=== PATIENT | female | born 1970 | race Caucasian/White ===

== ENCOUNTER 2016-08-21 13:58 | Emergency (ER) | payer BC ==
[~2016-08-21] VITALS: Ht 149.9 cm; Wt 80.9 kg
[~2016-08-21 13:58] MED LIST: ARMO180T PO; CLON.3T T-DERMAL
[2016-08-21 14:04] VITALS: BP 140/95; PULSE 79; RESP 16; TEMP 98.6; O2SAT 97
[2016-08-21] MEDS ORDERED: SUPPLEMENTS PO (14:21)
--- NOTE | 2016-08-21 14:25 | PD ---
HPI Chief Complaint: Abdominal Pain Time Seen by Provider: 14:09 Travel History International Travel<30 days: No Contact w/Intl Traveler<30days: No Traveled to known affect area: No History of Present Illness HPI 46-year-old female complains of right low quadrant abdominal pain, right flank pain and nausea. Patient states the symptoms started last night. Patient states the pain is cramping pain and sharp pain started on the right low quadrant abdomen with rates in the right flank and right back area. Patient states that she has nausea but no vomiting or diarrhea. Patient denies dysuria or frequency. Patient denies any vaginal discharge or bleeding. Patient denies any fever chills. Patient has history of ovarian cyst and kidney stone in the past. Patient has been seen by specialist wound care for her ovarian cyst. Patient awaiting surgery for ovarian cyst. Patient denies any injury. On a scale from 1-10 the pain is a 10. PFSH Past Medical History Hx Anticoagulant Therapy: No Arthritis: Yes (RHEUMATOID) Asthma: Yes Autoimmune Disease: Yes (MULTIPLE SCLEROSIS) Anxiety: Yes Heart Rhythm Problems: No Cancer: No Cardiovascular Problems: Yes (HTN) High Cholesterol: Yes Congestive Heart Failure: No Cerebrovascular Accident: Yes (TIA, HTN, CHOL) Diabetes: No Diminished Hearing: No Fibromyalgia: Yes Gastrointestinal Disorders: Yes (n/v) Glaucoma: No Hepatitis: No Hiatal Hernia: No Herniated Disk: Yes Hypertension: Yes Immune Disorder: Yes Parkinson's Disease: Yes Psychiatric: Yes (ptsd) Respiratory: Yes (ASTHMA) Immunizations Current: Yes Pneumonia: Yes Thyroid Disease: Yes ?: Not Menopausal: No : 6 Para: 2 Miscarriage: 4 Ovarian Cysts: Yes (HX OF RT OVARY SIDED DERMOID TUMOR ) Past Surgical History Abdominal Surgery: Yes (DERMOID TUMOR REMOVED TO LEFT OVARY AND UTERUS) Section: Yes (03/27 X1) Gynecologic Surgery: Yes (MULTIPLE TUMORS REMOVED, LATEST RIGHT OVARY,BREAST, CERCLAGE) Oral Surgery: Yes (ORAL, NASAL POST TRAUMA) Pacemaker: No Other Surgery: Yes (LAP & HYSTOCOPY;BILATERAL LEFT LUMPECTOMY X 2 07/29) Social History Alcohol Use: No Tobacco Use: No Substance Use: No Allergies-Medications (Allergen,Severity, Reaction): Coded Allergies: Compazine (Verified Adverse Reaction, Mild, anxiety, 08/21/16) *MDRO Multi-Drug Resistant Organism (Unverified Adverse Reaction, Unknown , 08/21/16) MRSA Reported Meds & Prescriptions Reported Meds & Active Scripts Active Reported [Supplements] 1 Tab PO DAILY Review of Systems General / Constitutional: No: Fever Eyes: No: Visual changes HENT: No: Headaches Cardiovascular: No: Chest Pain or Discomfort Respiratory: No: Shortness of Breath Gastrointestinal: Positive: Abdominal Pain Genitourinary: No: Dysuria Musculoskeletal: No: Pain Skin: No Rash Neurologic: No: Weakness Psychiatric: No: Depression Endocrine: No: Polydipsia Hematologic/Lymphatic: No: Easy Bruising Physical Exam Narrative GENERAL: Well-nourished, well-developed patient. SKIN: Warm and dry. HEAD: Normocephalic. EYES: No scleral icterus. No injection or drainage. NECK: Supple, trachea midline. No JVD or lymphadenopathy. CARDIOVASCULAR: Regular rate and rhythm without murmurs, gallops, or rubs. RESPIRATORY: Breath sounds equal bilaterally. No accessory muscle use. GASTROINTESTINAL: Abdomen soft, nondistended. Patient has moderate tenderness on palpation right low quadrant abdomen and right low back area. MUSCULOSKELETAL: No cyanosis, or edema. BACK: Nontender without obvious deformity. No CVA tenderness. Data Data Last Documented VS Vital Signs Date Time Temp Pulse Resp B/P Pulse Ox O2 Delivery O2 Flow Rate FiO2 08/21/16 15:39 18 08/21/16 14:04 98.6 79 140/95 97 Orders Complete Blood Count With Diff (08/21/16 14:25) Comprehensive Metabolic Panel (08/21/16 14:25) Prothrombin Time / Inr (Pt) (08/21/16 14:25) Act Partial Throm Time (Ptt) (08/21/16 14:25) Lipase (08/21/16 14:25) Urinalysis - C+S If Indicated (08/21/16 14:25) Ct Abd/Pel W Iv Contrast(Rout) (08/21/16 14:25) Ed Urine Pregnancytest Poc (08/21/16 14:25) Sodium Chlor 0.9% 1000 Ml Inj (Ns 1000 M (08/21/16 14:30) Morphine Inj (Morphine Inj) (08/21/16 14:30) Ondansetron Inj (Zofran Inj) (08/21/16 14:30) Urine Culture (08/21/16 14:35) Iohexol 300 Inj (Rad Ct) (Omnipaque 300 (08/21/16 15:29) Ketorolac Inj (Toradol Inj) (08/21/16 15:45) Labs Laboratory Tests Test 08/21/16 08/21/16 14:35 14:45 Urine Color YELLOW Urine Turbidity HAZY Urine pH 6.5 Urine Specific [place] 1.031 Urine Protein NEG mg/dL Urine Glucose (UA) 500 mg/dL Urine Ketones TRACE mg/dL Urine Occult Blood LARGE Urine Nitrite NEG Urine Bilirubin NEG Urine Leukocyte Esterase NEG Urine RBC 100-200 /hpf Urine WBC 9-14 /hpf Urine Squamous Epithelial 0-5 /hpf Cells Urine Bacteria OCC /hpf Microscopic Urinalysis Comment CULTURE INDICATED White Blood Count 7.3 TH/MM3 Red Blood Count 4.69 MIL/MM3 Hemoglobin 13.9 GM/DL Hematocrit 40.5 % Mean Corpuscular Volume 86.4 FL Mean Corpuscular Hemoglobin 29.7 PG Mean Corpuscular Hemoglobin 34.4 % Concent Red Cell Distribution Width 12.0 % Platelet Count 233 TH/MM3 Mean Platelet Volume 8.6 FL Neutrophils (%) (Auto) 62.2 % Lymphocytes (%) (Auto) 27.6 % Monocytes (%) (Auto) 8.6 % Eosinophils (%) (Auto) 1.2 % Basophils (%) (Auto) 0.4 % Neutrophils # (Auto) 4.6 TH/MM3 Lymphocytes # (Auto) 2.0 TH/MM3 Monocytes # (Auto) 0.6 TH/MM3 Eosinophils # (Auto) 0.1 TH/MM3 Basophils # (Auto) 0.0 TH/MM3 CBC Comment DIFF FINAL Differential Comment Prothrombin Time 10.7 SEC Prothromb Time International 1.0 RATIO Ratio Activated Partial 28.1 SEC Thromboplast Time Sodium Level 141 MEQ/L Potassium Level 3.8 MEQ/L Chloride Level 105 MEQ/L Carbon Dioxide Level 27.6 MEQ/L Anion Gap 8 MEQ/L Blood Urea Nitrogen 14 MG/DL Creatinine 0.93 MG/DL Estimat Glomerular Filtration 65 ML/MIN Rate Random Glucose 186 MG/DL Calcium Level 8.8 MG/DL Total Bilirubin 0.2 MG/DL Aspartate Amino Transf 13 U/L (AST/SGOT) Alanine Aminotransferase 31 U/L (ALT/SGPT) Alkaline Phosphatase 95 U/L Total Protein 7.2 GM/DL Albumin 3.4 GM/DL Lipase 169 U/L MDM Medical Decision Making Medical Screen Exam Complete: Yes Emergency Medical Condition: Yes Interpretation(s) Last Impressions Abdomen/Pelvis CT 08/21/16 1425 Signed Impressions: Service Date/Time: Sunday, August 21, 2016 15:25 - CONCLUSION: 1. Negative CT scan of the abdomen and pelvis. Patrice Aparicio MD 1601 p.m. CBC within normal limit. CMP within normal limit. UA positive with WBC RBC and bacteria. Differential Diagnosis Differential diagnosis including appendicitis, UTI, pyelonephritis, nephrolithiasis, ovarian cyst, ovarian torsion, ectopic . Narrative Course 46-year-old female with right low quadrant abdominal pain and right low back pain. History of ovarian cysts and kidney stone. Morphine 2 mg IV. Zofran 4 mg IV. Toradol 30 mg IV. Normal saline solution 1 25 cc an hour. Diagnosis Primary Impression: UTI (urinary tract infection) Qualified Code: N30.01 - Acute cystitis with hematuria Patient Instructions: General Instructions Additional Instructions: Take medications as directed. Follow-up with personal physician. Return if worse. Med/Other Pt SpecificInfo: Prescription(s) given Scripts Hydrocodone-Acetaminophen ([place])5-325 mg Tab1 Tab PO Q6H PRN (PAIN) #10 TAB Ref 0 Prov:Brayan Jolley MD 08/21/16 Phenazopyridine (Pyridium)200 Mg Drm259 Mg PO Q8H PRN (DYSURIA) #12 TAB Ref 0 Prov:Brayan Jolley MD 08/21/16 Sulfamethoxazole-Trimethoprim (Bactrim DS)800-160 Mg Tab1 Tab PO BID #14 TAB Prov:Brayan Jolley MD 08/21/16 Disposition: 01 DISCHARGE HOME Condition: Stable Brayan Jolley MD Aug 21, 2016 14:25
[2016-08-21] MEDS ORDERED: SODIUM CHLOR 0.9% 1000 ML INJ 1,000 ML IV SCH (14:30)
[2016-08-21] MEDS ORDERED: MORPHINE SULFATE 4 MG/ML INJ IV PUSH ONE (14:30)
[2016-08-21] MEDS ORDERED: ONDANSETRON HCL 4 MG/2 ML VIAL IV PUSH ONE (14:30)
[2016-08-21 14:57] LABS: AUTOMATED NEUTROPHIL # 4.6 TH/MM3 (1.8-7.7); BASOPHIL % 0.4 % (0.0-2.0); EOSINOPHIL # 0.1 TH/MM3 (0-0.4); EOSINOPHIL % 1.2 % (0.0-4.0); HEMATOCRIT 40.5 % (35.0-46.0); HEMO FLAGS DIFF FINAL; LYMPH % 27.6 % (9.0-44.0); MEAN CELL VOLUME 86.4 FL (80.0-100.0); MEAN CORPUSCULAR HEMOGLOBIN 29.7 PG (27.0-34.0); MEAN CORPUSCULAR HGB CONC 34.4 % (32.0-36.0); MONO % 8.6 % (0.0-8.0); NEUT % 62.2 % (16.0-70.0); PLATELET COUNT 233 TH/MM3 (150-450); RED BLOOD COUNT 4.69 MIL/MM3 (4.00-5.30); WHITE BLOOD COUNT 7.3 TH/MM3 (4.0-11.0)
[2016-08-21 15:03] LABS: CHLORIDE 105 MEQ/L (98-107); POTASSIUM 3.8 MEQ/L (3.5-5.1); SODIUM (NA) 141 MEQ/L (136-145)
[2016-08-21 15:06] LABS: BLOOD, URINE LARGE (NEG); GLUCOSE,URINE 500 mg/dL (NEG); KETONE, URINE TRACE mg/dL (NEG); NITRITE,URINE NEG (NEG); PH, URINE 6.5 (5.0-8.5)
[2016-08-21 15:07] LABS: ANION GAP 8 MEQ/L (5-15); APTT (PATIENT) 28.1 SEC (24.3-30.1); BICARBONATE 27.6 MEQ/L (21.0-32.0); BLOOD UREA NITROGEN 14 MG/DL (7-18); PROTHROMBIN TIME - PATIENT 10.7 SEC (9.8-11.6)
[2016-08-21 15:10] LABS: ALT (GPT) 31 U/L (10-53); AST (GOT) 13 U/L (15-37); GLOMERULAR FILTRATION RATE 65 ML/MIN (>89)
[2016-08-21 15:11] LABS: TOTAL BILIRUBIN ADULT 0.2 MG/DL (0.2-1.0)
[2016-08-21 15:13] LABS: ALKALINE PHOSPHATASE 95 U/L (45-117)
[2016-08-21 15:19] LABS: URINE COLOR YELLOW (YELLW/STRAW)
[2016-08-21 15:21] LABS: BACTERIA, URINE OCC /hpf; COMMENT (UR) CULTURE INDICATED; CULTURE IF INDICATED CULTURE INDICATED; RBC, URINE 100-200 /hpf (0-3); SQUAMOUS EPITHELIAL CELL URINE 0-5 /hpf (0-5)
[2016-08-21] MEDS ORDERED: IOHEXOL 300 MG/ML 100 ML BTL (for Rad CT) IV ONE (15:29)
[2016-08-21 15:39] VITALS: RESP 18
[2016-08-21] MEDS ORDERED: KETOROLAC TROMETHAMINE 30 MG/ML (IVP) VIAL IV PUSH ONE (15:45)
--- NOTE | 2016-08-21 15:47 | RADHPO ---
EXAM DATE/TIME: 08/21/2016 15:25 [facility] COMPARISON: CT BRAIN W/O CONTRAST, October 18, 2015, 11:28. INDICATIONS : Right lower quadrant abdomen pain for two days IV CONTRAST: 100 cc Omnipaque 300 (iohexol) IV ORAL CONTRAST: No oral contrast ingested. RADIATION DOSE: 19.39 CTDIvol (mGy) MEDICAL HISTORY : Hypertension. Multiple sclerosis. SURGICAL HISTORY : section. ENCOUNTER: Initial ACUITY: 2 days PAIN SCALE: 8/10 LOCATION: Right lower quadrant abdomen TECHNIQUE: Volumetric scanning of the abdomen and pelvis was performed. Using automated exposure control and ad justment of the mA and/or kV according to patient size, radiation dose was kept as low as reasonably achievable to obtain optimal diagnostic quality images. FINDINGS: LOWER LUNGS: The visualized lower lungs are clear. LIVER: Homogeneous density without lesion. There is no dilation of the biliary tree. No calcified gallston es. SPLEEN: Normal size without lesion. PANCREAS: Within normal limits. KIDNEYS: Normal in size and shape. There is no mass, stone or hydronephrosis. ADRENAL GLANDS: Within normal limits. VASCULAR: There is no aortic aneurysm. BOWEL/MESENTERY: The stomach, small bowel, and colon demonstrate no acute abnormality. There is no free intraperitone al air or fluid. The appendix is visualized and is normal in appearance. ABDOMINAL WALL: Within normal limits. RETROPERITONEUM: There is no lymphadenopathy. BLADDER: No wall thickening or mass. REPRODUCTIVE: Within normal limits. INGUINAL: There is no lymphadenopathy or hernia. MUSCULOSKELETAL: Within normal limits for patient age. CONCLUSION: 1. Negative CT scan of the abdomen and pelvis. Patrice Aparicio MD on August 21, 2016 at 15:42 Board Certified Radiologist. This report was verified electronically.
[2016-08-21] MEDS ORDERED: PYRI200T4 PO (16:09)
[2016-08-21] MEDS ORDERED: NORC5TAB PO (16:09)
[2016-08-21] MEDS ORDERED: BACT800T5 PO (16:09)
[2016-08-21] MEDS ORDERED: LEVOFLOXACIN 750 MG TAB PO ONE (16:15)
[2016-08-21 16:46] VITALS: BP 121/81
[2016-09-01] MEDS ORDERED: KETO10 PO (15:28)
== END 2016-08-21 16:49 | disposition home or self-care (01) ==
LOC: PHED 13:58
DX: N39.0 Urinary tract infection, site not specified (principal); R82.90 Unspecified abnormal findings in urine; I10 Essential (primary) hypertension; G20 Parkinson's disease; Z86.73 Personal history of transient ischemic attack (TIA), and cerebral infarction without residual deficits; E78.00 Pure hypercholesterolemia, unspecified; G35 Multiple sclerosis
CPT/HCPCS: 74177; 80053; 81001; 83690; 84703; 85025; 85610; 85730; 87086; 96361; 96374; 96375; 99284; J1885; J2270; J2405; J7030; Q9967

== ENCOUNTER 2016-08-22 11:43 | Emergency (ER) | payer BC ==
[~2016-08-22] VITALS: Ht 149.9 cm; Wt 77.2 kg
[~2016-08-22 11:43] MED LIST changes: +BACT800T5 PO; +NORC5TAB PO; +PYRI200T4 PO; +SUPPLEMENTS PO
[2016-08-22 11:46] VITALS: BP 146/91; PULSE 72; RESP 15; TEMP 97.7; O2SAT 98
[2016-09-01] MEDS ORDERED: KETO10 PO (15:28)
== END 2016-08-22 13:20 | disposition left against medical advice (07) ==
LOC: NED 11:43
DX: E86.0 Dehydration (principal); Z53.21 Procedure and treatment not carried out due to patient leaving prior to being seen by health care provider
CPT/HCPCS: 99281

== ENCOUNTER 2016-08-29 17:20 | Emergency (ER) | payer BC ==
[~2016-08-29] VITALS: Ht 149.9 cm; Wt 81.0 kg
[~2016-08-29 17:20] MED LIST changes: -ARMO180T PO; -CLON.3T T-DERMAL
[2016-08-29 17:29] VITALS: BP 151/96; PULSE 86; RESP 16; TEMP 98.7; O2SAT 98
[2016-08-29] MEDS ORDERED: ARMO120T PO (17:49)
[2016-08-29] MEDS ORDERED: CYCL1TAB29 PO (17:49)
[2016-08-29] MEDS ORDERED: CLON.3T T-DERMAL (17:49)
[2016-08-29] MEDS ORDERED: TORADOL PO (17:59)
[2016-08-29 18:14] LABS: BLOOD, URINE NEG (NEG); GLUCOSE,URINE 250 mg/dL (NEG); KETONE, URINE NEG (NEG); NITRITE,URINE NEG (NEG)
[2016-08-29 18:22] LABS: METHOD OF COLLECTION CLEAN CATCH; URINE COLOR YELLOW (YELLW/STRAW); WBC, URINE 0-2 /hpf (0-5)
[2016-08-29 18:23] LABS: BACTERIA, URINE MOD /hpf; COMMENT (UR) CULTURE INDICATED; CULTURE IF INDICATED CULTURE INDICATED; SQUAMOUS EPITHELIAL CELL URINE > 8 /hpf (0-5)
[2016-08-29] MEDS ORDERED: KETO10 PO (19:24)
--- NOTE | 2016-08-29 19:25 | PD ---
HPI Chief Complaint: Abdominal Pain Time Seen by Provider: 17:50 Travel History International Travel<30 days: No Contact w/Intl Traveler<30days: No Traveled to known affect area: No History of Present Illness HPI This 46-year-old female is complaining of right flank pain radiates to the right side of the abdomen. She's been having this pain for some time. She is seeing Dr. Poon who is planning surgery to remove dermoid tumors. She was here the other day for this pain and had a CT scan which was essentially negative. She was noted to have 100-200 red cells and some white cells in her urine she was put on antibiotics. She Had some vomiting with the Bactrim and was not able to complete the prescription. She has multiple medical issues. She has lupus. 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 She has multiple autoimmune illnesses. She has been taking Toradol for pain and has run out. She does go to pain management she has a lot of trouble with her neck and her back. She is allergic to Dilaudid. Morphine does not help her. Lortab does not help her. PFSH Past Medical History Hx Anticoagulant Therapy: No Arthritis: Yes (RHEUMATOID) Asthma: Yes Autoimmune Disease: Yes (MULTIPLE SCLEROSIS) Anxiety: Yes Heart Rhythm Problems: No Cancer: No Cardiovascular Problems: Yes (HTN) High Cholesterol: Yes Congestive Heart Failure: No Cerebrovascular Accident: Yes (TIA) Diabetes: No Diminished Hearing: No Fibromyalgia: Yes Gastrointestinal Disorders: Yes (n/v) Glaucoma: No Hepatitis: No Hiatal Hernia: No Herniated Disk: Yes Hypertension: Yes Immune Disorder: Yes Parkinson's Disease: Yes Psychiatric: Yes (ptsd) Respiratory: Yes (ASTHMA) Immunizations Current: Yes Pneumonia: Yes Thyroid Disease: Yes Tetanus Vaccination: < 5 Years Influenza Vaccination: No ?: Not LMP: END OF JUL Menopausal: No : 6 Para: 2 Miscarriage: 4 Ovarian Cysts: Yes (HX OF RT OVARY SIDED DERMOID TUMOR ) Past Surgical History Abdominal Surgery: Yes (DERMOID TUMOR REMOVED TO LEFT OVARY AND UTERUS) Section: Yes (03/27 X1) Gynecologic Surgery: Yes (MULTIPLE TUMORS REMOVED, LATEST RIGHT OVARY,BREAST, CERCLAGE) Oral Surgery: Yes (ORAL, NASAL POST TRAUMA) Pacemaker: No Other Surgery: Yes (LAP & HYSTOCOPY;BILATERAL LEFT LUMPECTOMY X 2 07/29) Social History Alcohol Use: No Tobacco Use: No Substance Use: No Allergies-Medications (Allergen,Severity, Reaction): Coded Allergies: Compazine (Verified Adverse Reaction, Mild, anxiety, 08/29/16) *MDRO Multi-Drug Resistant Organism (Unverified Adverse Reaction, Unknown , 08/29/16) MRSA Ativan (Verified Adverse Reaction, Unknown, "I felt blank", 08/29/16) Dilaudid (Verified Adverse Reaction, Unknown, "I just didn't feel right", 08/29/16) Reported Meds & Prescriptions Reported Meds & Active Scripts Active [place] (Hydrocodone-Acetaminophen) 5-325 mg Tab 1 Tab PO Q6H PRN Bactrim DS (Sulfamethoxazole-Trimethoprim) 800-160 Mg Tab 1 Tab PO BID Reported [Toradol] 30 Mg PO DIRECTED [id number] HR Patch (Clonidine) 0.3 Mg/24 Hr Patch 1 Patch T-DERMAL Q7D Flexeril (Cyclobenzaprine HCl) 10 Mg Tab 10 Mg PO TID [place] Thyroid (Thyroid) 120 Mg Tab 120 Mg PO DAILY Review of Systems General / Constitutional: No: Fever, Chills Eyes: No: Diploplia, Blurred Vision Cardiovascular: No: Chest Pain or Discomfort Respiratory: No: Cough Gastrointestinal: Positive: Nausea, Abdominal Pain Genitourinary: No: Urgency, Frequency Musculoskeletal: No: Myalgias, Arthralgias Neurologic: No: Weakness Psychiatric: No: Anxiety Hematologic/Lymphatic: No: Easy Bruising Physical Exam Narrative GENERAL: Well-developed female SKIN: Warm and dry. HEAD: Atraumatic. Normocephalic. EYES: Pupils equal and round. No scleral icterus. No injection or drainage. ENT: No nasal bleeding or discharge. Mucous membranes pink and moist. NECK: Trachea midline. No JVD. CARDIOVASCULAR: Regular rate and rhythm. No murmur appreciated. RESPIRATORY: No accessory muscle use. Clear to auscultation. Breath sounds equal bilaterally. GASTROINTESTINAL: Abdomen soft, there is some right mid abdominal and right flank tenderness. There is no guarding or rigidity MUSCULOSKELETAL: No obvious deformities. No clubbing. No cyanosis. No edema. NEUROLOGICAL: Awake and alert. No obvious cranial nerve deficits. Motor grossly within normal limits. Normal speech. PSYCHIATRIC: Appropriate mood and affect; insight and judgment normal. Data Data Last Documented VS Vital Signs Date Time Temp Pulse Resp B/P Pulse Ox O2 Delivery O2 Flow Rate FiO2 08/29/16 17:29 98.7 86 16 151/96 98 Orders Urinalysis - C+S If Indicated (08/29/16 18:09) Urine Culture (08/29/16 18:10) Labs Laboratory Tests Test 08/29/16 18:10 Urine Collection Type CLEAN CATCH Urine Color YELLOW Urine Turbidity CLEAR Urine pH 6.0 Urine Specific [place] 1.030 Urine Protein NEG mg/dL Urine Glucose (UA) 250 mg/dL Urine Ketones NEG mg/dL Urine Occult Blood NEG Urine Nitrite NEG Urine Bilirubin NEG Urine Leukocyte Esterase NEG Urine WBC 0-2 /hpf Urine Squamous Epithelial > 8 /hpf Cells Urine Bacteria MOD /hpf Microscopic Urinalysis Comment CULTURE INDICATED Urine Collection Time 18:10 [facility] Medical Decision Making Medical Screen Exam Complete: Yes Emergency Medical Condition: Yes Medical Record Reviewed: Yes Differential Diagnosis Differential includes chronic abdominal pain, dermoid tumor, back pain Narrative Course Patient has had complete evaluation here and is just requesting some medication until she sees a pain management doctor in a few days. I will prescribe some Toradol which he says is the only thing that has helped her Diagnosis Primary Impression: Right flank pain Scripts Ketorolac 10 Mg Tab10 Mg PO Q6HR PRN (PAIN) #30 TAB Ref 0 Prov:Toni Gilliam MD 08/29/16 Disposition: 01 DISCHARGE HOME Condition: Stable Toni Gilliam MD Aug 29, 2016 19:25
[2016-08-29 19:31] VITALS: BP 147/84
[2016-09-01] MEDS ORDERED: KETO10 PO (15:28)
== END 2016-08-29 19:32 | disposition home or self-care (01) ==
LOC: PHED 17:20
DX: R10.9 Unspecified abdominal pain (principal); G35 Multiple sclerosis; I10 Essential (primary) hypertension; E78.00 Pure hypercholesterolemia, unspecified; Z86.73 Personal history of transient ischemic attack (TIA), and cerebral infarction without residual deficits; G20 Parkinson's disease; M79.7 Fibromyalgia
CPT/HCPCS: 81001; 87086; 99284

== ENCOUNTER 2017-06-22 16:36 | Emergency (ER) | payer SELFPAY ==
[~2017-06-22] VITALS: Ht 151.1 cm; Wt 78.0 kg
[~2017-06-22 16:36] MED LIST changes: +ARMO120T PO; +CLON.3T T-DERMAL; +CYCL10TA PO; +KETO10 PO; -PYRI200T4 PO; -SUPPLEMENTS PO
[2017-06-22 16:38] VITALS: BP 179/98; PULSE 120; RESP 20; TEMP 98.9; O2SAT 98
--- NOTE | 2017-06-22 16:55 | PD ---
HPI Chief Complaint: Cold / Flu Symptoms Time Seen by Provider: 16:53 Travel History International Travel<30 days: No Contact w/Intl Traveler<30days: No Traveled to known affect area: No History of Present Illness HPI 47-year-old female came to the emergency room with history of chills, generalized myalgia, nausea, vomiting and just not feeling well for past 3 days. Patient says she has been taking Tylenol alternating with Advil for her chills/fever. She did not measure temperature at home. Her last dose of Advil was this morning. Patient was tachycardic in triage but afebrile. She says her entire body hurts and there is burning sensation at the tip of her fingers. Patient has history of Will's thyroiditis but she does not have insurance and has not taking medications in a while. She used to see an mold burner for it in the past. No known sick contacts. No history of diarrhea, dysuria or cough. Patient is also complaining of headache. [facility] Past Medical History Narrative Medical list of her past medical, surgical, social and family history is reviewed from the nursing note. Hx Anticoagulant Therapy: No Arthritis: Yes (RHEUMATOID) Asthma: Yes Autoimmune Disease: Yes (MULTIPLE SCLEROSIS) Anxiety: Yes Heart Rhythm Problems: No Cancer: No Cardiovascular Problems: Yes (HTN) High Cholesterol: Yes Congestive Heart Failure: No Cerebrovascular Accident: Yes (TIA) Diabetes: Yes (PRE) Diminished Hearing: No Fibromyalgia: Yes Gastrointestinal Disorders: Yes (n/v) Glaucoma: No Hepatitis: No Hiatal Hernia: No Herniated Disk: Yes Hypertension: Yes Immune Disorder: Yes Parkinson's Disease: Yes Psychiatric: Yes (ptsd) Respiratory: Yes (ASTHMA) Immunizations Current: Yes Pneumonia: Yes Thyroid Disease: Yes ?: Not LMP: 06/18/17 Menopausal: No : 6 Para: 2 Miscarriage: 4 Ovarian Cysts: Yes (HX OF RT OVARY SIDED DERMOID TUMOR ) Past Surgical History Abdominal Surgery: Yes (DERMOID TUMOR REMOVED TO LEFT OVARY AND UTERUS) Section: Yes (03/27 X1) Gynecologic Surgery: Yes (MULTIPLE TUMORS REMOVED, LATEST RIGHT OVARY,BREAST, CERCLAGE) Oral Surgery: Yes (ORAL, NASAL POST TRAUMA) Pacemaker: No Other Surgery: Yes (LAP & HYSTOCOPY;BILATERAL LEFT LUMPECTOMY X 2 07/29) Social History Alcohol Use: No Tobacco Use: No Substance Use: No Allergies-Medications (Allergen,Severity, Reaction): Coded Allergies: prochlorperazine (Unverified Adverse Reaction, Mild, anxiety, 06/22/17) *MDRO Multi-Drug Resistant Organism (Unverified Adverse Reaction, Unknown , 06/22/17) MRSA hydromorphone (Unverified Adverse Reaction, Unknown, "I just didn't feel right", 06/22/17) lorazepam (Unverified Adverse Reaction, Unknown, "I felt blank", 06/22/17) Comments List of her allergies reviewed from the nursing note. Reported Meds & Prescriptions Reported Meds & Active Scripts Active Ketorolac (Ketorolac Tromethamine) 10 Mg Tab 10 Mg PO Q6HR PRN [place] (Hydrocodone-Acetaminophen) 5-325 mg Tab 1 Tab PO Q6H PRN Reported Ketorolac (Ketorolac Tromethamine) 10 Mg Tab 30 Mg PO DIRECTED Flexeril (Cyclobenzaprine HCl) 10 Mg Tab 10 Mg PO TID [place] Thyroid (Thyroid) 120 Mg Tab 120 Mg PO DAILY Narrative Medication List of her home medications reviewed from the nursing note. Review of Systems Except as stated in HPI: all other systems reviewed are Neg General / Constitutional: Positive: Fever, Chills Musculoskeletal: Positive: Myalgias Physical Exam Narrative GENERAL: Awake, alert, obese, anxious SKIN: Focused skin assessment warm/dry. HEAD: Atraumatic. Normocephalic. EYES: Pupils equal and round. No scleral icterus. No injection or drainage. ENT: No nasal bleeding or discharge. Mucous membranes pink and moist. NECK: Trachea midline. No JVD. CARDIOVASCULAR: Regular rate and rhythm. No murmur appreciated. RESPIRATORY: No accessory muscle use. Clear to auscultation. Breath sounds equal bilaterally. GASTROINTESTINAL: Abdomen soft, non-tender, nondistended. Hepatic and splenic margins not palpable. MUSCULOSKELETAL: No obvious deformities. No clubbing. No cyanosis. No edema. NEUROLOGICAL: Awake and alert. No obvious cranial nerve deficits. Motor grossly within normal limits. Normal speech. PSYCHIATRIC: Appropriate mood and affect; insight and judgment normal. Data Data Last Documented VS Vital Signs Date Time Temp Pulse Resp B/P (MAP) Pulse Ox O2 Delivery O2 Flow Rate FiO2 06/22/17 19:24 06/22/17 18:46 81 16 98 Room Air 06/22/17 16:38 98.9 Orders Orders Complete Blood Count With Diff (06/22/17 17:01) Comprehensive Metabolic Panel (06/22/17 17:) Urinalysis - C+S If Indicated (06/22/17 17:01) Influenzae A/B Antigen (06/22/17 17:01) Blood Culture (06/22/17 17:) Chest, Single Ap (06/22/17:) Blood Glucose (06/22/17:) Ecg Monitoring (06/22/17:) Iv Access Insert/Monitor (06/22/17:) Oximetry (06/22/17:) Oxygen Administration (06/22/17:) Thyroid Stimulating Hormone (06/22/17 17:) Sodium Chlor 0.9% 1000 Ml Inj (Ns 1000 M (06/22/17 17:15) Promethazine Inj (Phenergan Inj) (06/22/17 17:15) Group A Rapid Strep Screen (06/22/17 17:36) Strep Culture (Group A) (06/22/17 17:10) Ed Discharge Order (06/22/17 18:40) Ondansetron Inj (Zofran Inj) (06/22/17 18:45) Labs Laboratory Tests Test 06/22/17 17:05 06/22/17 17:23 White Blood Count 3.3 TH/MM3 Red Blood Count 5.10 MIL/MM3 Hemoglobin 15.4 GM/DL Hematocrit 45.0 % Mean Corpuscular Volume 88.3 FL Mean Corpuscular Hemoglobin 30.2 PG Mean Corpuscular Hemoglobin Concent 34.2 % Red Cell Distribution Width 12.9 % Platelet Count 155 TH/MM3 Mean Platelet Volume 10.0 FL Neutrophils (%) (Auto) 62.4 % Lymphocytes (%) (Auto) 15.9 % Monocytes (%) (Auto) 17.8 % Eosinophils (%) (Auto) 3.4 % Basophils (%) (Auto) 0.5 % Neutrophils # (Auto) 2.1 TH/MM3 Lymphocytes # (Auto) 0.5 TH/MM3 Monocytes # (Auto) 0.6 TH/MM3 Eosinophils # (Auto) 0.1 TH/MM3 Basophils # (Auto) 0.0 TH/MM3 CBC Comment DIFF FINAL Differential Comment Blood Urea Nitrogen 13 MG/DL Creatinine 0.75 MG/DL Random Glucose 130 MG/DL Total Protein 7.9 GM/DL Albumin 3.9 GM/DL Calcium Level 8.7 MG/DL Alkaline Phosphatase 115 U/L Aspartate Amino Transf (AST/SGOT) 38 U/L Alanine Aminotransferase (ALT/SGPT) 45 U/L Total Bilirubin 0.2 MG/DL Sodium Level 137 MEQ/L Potassium Level 3.9 MEQ/L Chloride Level 103 MEQ/L Carbon Dioxide Level 24.7 MEQ/L Anion Gap 9 MEQ/L Estimat Glomerular Filtration Rate 84 ML/MIN Thyroid Stimulating Hormone 3rd Gen 1.050 uIU/ML Urine Color LIGHT-YELLOW Urine Turbidity CLEAR Urine pH 6.5 Urine Specific [place] 1.014 Urine Protein NEG mg/dL Urine Glucose (UA) NEG mg/dL Urine Ketones TRACE mg/dL Urine Occult Blood LARGE Urine Nitrite NEG Urine Bilirubin NEG Urine Urobilinogen LESS THAN 2.0 MG/DL Urine Leukocyte Esterase NEG Urine RBC 2 /hpf Urine WBC 1 /hpf Urine Squamous Epithelial Cells 1 /hpf Microscopic Urinalysis Comment CATH-CULT NOT IND MDM Medical Decision Making Medical Screen Exam Complete: Yes Emergency Medical Condition: Yes Medical Record Reviewed: Yes Differential Diagnosis Influenza, hyperthyroidism, viral illness Narrative Course 5:34 PM awaiting for the blood test result. Patient is getting IV fluid bolus. 6:41 PM blood test results are back. White count is low but rest of the blood test results are within acceptable limit. I will discharge her home. Procedures EKG Prior to Arrival: No Diagnosis Primary Impression: Viral illness Referrals: Primary Care Physician Additional Instructions: Drink lots of fluid. Take Tylenol/Motrin/ibuprofen/Advil for fever or body aches. Follow-up with your primary care. Return to the ER if the condition worsens or any other new concerns. Med/Other Pt SpecificInfo: No Change to Meds Disposition: 01 DISCHARGE HOME Condition: Stable Radha Kelley MD Jun 22, 2017 16:55
[2017-06-22] MEDS: PROMETHAZINE INJ 25 MG/ML VIAL IM ONE ×2 (17:10→17:15)
[2017-06-22] MEDS ORDERED: SODIUM CHLOR 0.9% 1000 ML INJ 1,000 ML IV ONE (17:15)
--- NOTE | 2017-06-22 17:24 | RADRPT ---
EXAM DATE/TIME: 06/22/2017 17:07 [facility] COMPARISON: CHEST PA & LAT, June 24, 2016, 15:09. INDICATIONS : Cough. MEDICAL HISTORY : None. SURGICAL HISTORY : None. ENCOUNTER: Initial ACUITY: 2 days PAIN SCORE: 0/10 LOCATION: Bilateral chest FINDINGS: A single view of the chest demonstrates the lungs to be symmetrically aerated without evidence of mas s, infiltrate or effusion. The cardiomediastinal contours are unremarkable. Osseous structures are intact. CONCLUSION: Normal examination. Shawn Madison MD on June 22, 2017 at 17:22 Board Certified Radiologist. This report was verified electronically.
[2017-06-22 17:44] LABS: AUTOMATED NEUTROPHIL # 2.1 TH/MM3 (1.8-7.7); BASOPHIL % 0.5 % (0.0-2.0); EOSINOPHIL # 0.1 TH/MM3 (0-0.4); EOSINOPHIL % 3.4 % (0.0-4.0); HEMO FLAGS DIFF FINAL; LYMPH % 15.9 % (9.0-44.0); LYMPHOCYTE # 0.5 TH/MM3 (1.0-4.8); MEAN CELL VOLUME 88.3 FL (80.0-100.0); MEAN CORPUSCULAR HEMOGLOBIN 30.2 PG (27.0-34.0); MEAN CORPUSCULAR HGB CONC 34.2 % (32.0-36.0); MONO % 17.8 % (0.0-8.0); NEUT % 62.4 % (16.0-70.0); PLATELET COUNT 155 TH/MM3 (150-450); RED CELL DISTRIBUTION WIDTH 12.9 % (11.6-17.2); WHITE BLOOD COUNT 3.3 TH/MM3 (4.0-11.0)
[2017-06-22 18:05] LABS: BLOOD, URINE LARGE (NEG); GLUCOSE,URINE NEG (NEG); KETONE, URINE TRACE mg/dL (NEG); NITRITE,URINE NEG (NEG); PH, URINE 6.5 (5.0-8.5); SQUAMOUS EPITHELIAL CELL URINE 1 /hpf (0-5); URINE COLOR LIGHT-YELLOW (YELLW/STRAW)
[2017-06-22 18:06] LABS: COMMENT (UR) CATH-CULT NOT IND; CULTURE IF INDICATED CATH CULTURE NOT IND
[2017-06-22 18:15] LABS: ANION GAP 9 MEQ/L (5-15); AST (GOT) 38 U/L (15-37); BICARBONATE 24.7 MEQ/L (21.0-32.0); BLOOD UREA NITROGEN 13 MG/DL (7-18); CHLORIDE 103 MEQ/L (98-107); GLOMERULAR FILTRATION RATE 84 ML/MIN (>89); POTASSIUM 3.9 MEQ/L (3.5-5.1); SODIUM (NA) 137 MEQ/L (136-145)
[2017-06-22 18:23] LABS: ALKALINE PHOSPHATASE 115 U/L (45-117); ALT (GPT) 45 U/L (10-53); TOTAL BILIRUBIN ADULT 0.2 MG/DL (0.2-1.0)
[2017-06-22] MEDS ORDERED: ONDANSETRON HCL 4 MG/2 ML VIAL IV PUSH ONE (18:45)
[2017-06-22 18:46] VITALS: PULSE 81; RESP 16; O2SAT 98
== END 2017-06-22 19:25 | disposition home or self-care (01) ==
LOC: NEPE 16:36
DX: B34.9 Viral infection, unspecified (principal); M06.9 Rheumatoid arthritis, unspecified; J45.909 Unspecified asthma, uncomplicated; G35 Multiple sclerosis; I10 Essential (primary) hypertension; R73.03 Prediabetes; G20 Parkinson's disease; F43.10 Post-traumatic stress disorder, unspecified; M79.7 Fibromyalgia
CPT/HCPCS: 71010; 80053; 81001; 84443; 85025; 87040; 87081; 87205; 87804; 87880; 96361; 96372; 96374; 99284; J2405; J7030; J2550

== ENCOUNTER 2018-01-15 12:20 | Observation (INO) | payer MEDICAID ==
[~2018-01-15] VITALS: Ht 149.9 cm; Wt 75.0 kg
[~2018-01-15 12:20] MED LIST changes: -BACT800T5 PO; -CLON.3T T-DERMAL
[2018-01-15 12:36] VITALS: BP 211/140; PULSE 95; RESP 20; TEMP 97.6; O2SAT 99
--- NOTE | 2018-01-15 13:23 | RADRPT ---
EXAM DATE: 01/15/2018 1:17 PM EDT AGE/SEX: 47 years / Female INDICATIONS: Pain. CLINICAL DATA: This is the patient's initial encounter. Patient reports that signs and symptoms have been present for 2 weeks and indicates a pain score of 5/10. MEDICAL/SURGICAL HISTORY: Asthma. Elevated Blood Pressure. . Lumpectomy Rt and LT. COMPARISON: [facility], CHEST PA & LAT, 06/24/2016. . FINDINGS: PA and lateral views of the chest demonstrate the lungs to be symmetrically aerated without evidence of mass, infiltrate or effusion. The cardiomediastinal contours are unremarkable. Osseous structures are intact. CONCLUSION: No acute cardiopulmonary disease. Electronically signed by: Bladimir Olivo MD 01/15/2018 1:22 PM EDT
[2018-01-15 13:29] LABS: AUTOMATED NEUTROPHIL # 3.6 TH/MM3 (1.8-7.7); BASOPHIL % 0.8 % (0.0-2.0); EOSINOPHIL # 0.1 TH/MM3 (0-0.4); HEMATOCRIT 41.9 % (35.0-46.0); HEMOGLOBIN 14.8 GM/DL (11.6-15.3); LYMPH % 30.4 % (9.0-44.0); LYMPHOCYTE # 1.9 TH/MM3 (1.0-4.8); MEAN CELL VOLUME 87.9 FL (80.0-100.0); MEAN CORPUSCULAR HEMOGLOBIN 31.1 PG (27.0-34.0); MEAN CORPUSCULAR HGB CONC 35.3 % (32.0-36.0); MEAN PLATELET VOLUME 9.4 FL (7.0-11.0); MONO % 9.2 % (0.0-8.0); MONOCYTE # 0.6 TH/MM3 (0-0.9); NEUT % 57.6 % (16.0-70.0); PLATELET COUNT 211 TH/MM3 (150-450); RED BLOOD COUNT 4.77 MIL/MM3 (4.00-5.30); RED CELL DISTRIBUTION WIDTH 13.3 % (11.6-17.2); WHITE BLOOD COUNT 6.3 TH/MM3 (4.0-11.0)
[2018-01-15 13:36] LABS: PROTHROMBIN TIME - PATIENT 10.3 SEC (9.8-11.6)
[2018-01-15 13:37] VITALS: BP 205/102; PULSE 83; RESP 16; O2SAT 99
[2018-01-15 13:42] LABS: ALT (GPT) 27 U/L (10-53)
[2018-01-15 13:45] LABS: ALKALINE PHOSPHATASE 100 U/L (45-117); TOTAL BILIRUBIN ADULT 0.2 MG/DL (0.2-1.0); TOTAL PROTEIN 7.9 GM/DL (6.4-8.2); TROPONIN I LESS THAN 0.02 NG/ML (0.02-0.05)
[2018-01-15 13:50] LABS: ALBUMIN 3.9 GM/DL (3.4-5.0); AST (GOT) 21 U/L (15-37); BICARBONATE 23.2 MEQ/L (21.0-32.0); BLOOD UREA NITROGEN 11 MG/DL (7-18); CHLORIDE 104 MEQ/L (98-107); CREATININE 0.81 MG/DL (0.50-1.00); GLOMERULAR FILTRATION RATE 76 ML/MIN (>89); GLUCOSE,RANDOM 116 MG/DL (74-106); SODIUM (NA) 137 MEQ/L (136-145)
[2018-01-15] MEDS ORDERED: CYCLOBENZAPRINE HCL 10 MG TAB PO ONE (14:30)
[2018-01-15] MEDS ORDERED: KETOROLAC TROMETHAMINE 30 MG/ML (IVP) VIAL IV PUSH ONE (14:30)
[2018-01-15] MEDS ORDERED: hydrALAZINE HCL 20 MG/ML VIAL IV PUSH ONE (14:30)
[2018-01-15 14:35] VITALS: BP 175/87; PULSE 89; RESP 17; TEMP 97.7; O2SAT 99
--- NOTE | 2018-01-15 14:45 | PD ---
HPI Chief Complaint: Chest Pain Time Seen by Provider: 13:24 Travel History International Travel<30 days: No Contact w/Intl Traveler<30days: No Traveled to known affect area: No History of Present Illness HPI This is a 47-year-old female with a history of fibromyalgia, MS, Parkinson's disease, chronic cervical spine degenerative disc disease, who presents today with complaints of neck pain with radiation to the bilateral jaws and chest pressure. Patient reports it as intermittent. She states it is both pressure- like and tight. She reports associated shortness of breath. She denies any diaphoresis or nausea. There are no other complaints at time of examination. PFSH Past Medical History Hx Anticoagulant Therapy: No Arthritis: Yes (RHEUMATOID) Asthma: Yes Autoimmune Disease: Yes (MULTIPLE SCLEROSIS, LUPUS ) Anxiety: Yes Heart Rhythm Problems: No Cancer: No Cardiovascular Problems: Yes (HTN) High Cholesterol: Yes Congestive Heart Failure: No Cerebrovascular Accident: Yes (TIA) Diabetes: No Diminished Hearing: No Fibromyalgia: Yes Gastrointestinal Disorders: Yes (n/v) Glaucoma: No Hepatitis: No Hiatal Hernia: No Herniated Disk: Yes Hypertension: Yes Immune Disorder: Yes (LUPUS) Parkinson's Disease: Yes Psychiatric: Yes (ptsd) Respiratory: Yes (ASTHMA) Immunizations Current: Yes Pneumonia: Yes Thyroid Disease: Yes (hashimotos) Tetanus Vaccination: < 5 Years ?: Not LMP: currently on period Menopausal: No : 6 Para: 2 Miscarriage: 4 Ovarian Cysts: Yes (HX OF RT OVARY SIDED DERMOID TUMOR ) Past Surgical History Abdominal Surgery: Yes (DERMOID TUMOR REMOVED TO LEFT OVARY AND UTERUS) Section: Yes (03/27 X1) Gynecologic Surgery: Yes (MULTIPLE TUMORS REMOVED, LATEST RIGHT OVARY,BREAST, CERCLAGE) Oral Surgery: Yes (ORAL, NASAL POST TRAUMA) Pacemaker: No Other Surgery: Yes (LAP & HYSTOCOPY;BILATERAL LEFT LUMPECTOMY X 2 07/29) Social History Alcohol Use: No Tobacco Use: No Substance Use: No Allergies-Medications (Allergen,Severity, Reaction): Coded Allergies: prochlorperazine (Unverified Adverse Reaction, Mild, anxiety, 01/15/18) *MDRO Multi-Drug Resistant Organism (Unverified Adverse Reaction, Unknown , 01/15/18) MRSA hydromorphone (Unverified Adverse Reaction, Unknown, "I just didn't feel right", 01/15/18) lorazepam (Unverified Adverse Reaction, Unknown, "I felt blank", 01/15/18) Reported Meds & Prescriptions Reported Meds & Active Scripts Active Ketorolac (Ketorolac Tromethamine) 10 Mg Tab 10 Mg PO Q6HR PRN [place] (Hydrocodone-Acetaminophen) 5-325 mg Tab 1 Tab PO Q6H PRN Reported Ketorolac (Ketorolac Tromethamine) 10 Mg Tab 30 Mg PO DIRECTED Flexeril (Cyclobenzaprine HCl) 10 Mg Tab 10 Mg PO TID [place] Thyroid (Thyroid) 120 Mg Tab 120 Mg PO DAILY Review of Systems Except as stated in HPI: all other systems reviewed are Neg General / Constitutional: No: Fever HENT: Positive: Neck Pain, Other, No: Headaches Cardiovascular: Positive: Chest Pain or Discomfort (Radiation to the bilateral jaws), No: Palpitations ( pressure and tightness), Irregular Rhythm Respiratory: Positive: Shortness of Breath, No: Cough Gastrointestinal: No: Nausea, Vomiting, Abdominal Pain Musculoskeletal: Positive: Pain (Jaw and shoulder blade and), No: Limited ROM, Weakness ( left arm) Neurologic: No: Weakness, Dizziness, Headache, Change in Mentation Physical Exam Narrative GENERAL: Well-developed well-nourished female in no acute respiratory distress. SKIN: Focused skin assessment warm/dry. HEAD: Atraumatic. Normocephalic. EYES: No scleral icterus. No injection or drainage. ENT: No nasal bleeding or discharge. Mucous membranes pink and moist. NECK: Trachea midline. Supple. CARDIOVASCULAR: Regular rate and rhythm. No murmur appreciated. RESPIRATORY: No accessory muscle use. Clear to auscultation. Breath sounds equal bilaterally. GASTROINTESTINAL: Abdomen soft, non-tender. MUSCULOSKELETAL: No obvious deformities. No clubbing. No cyanosis. No edema. NEUROLOGICAL: Awake and alert. No obvious cranial nerve deficits. Motor grossly within normal limits. Normal speech. PSYCHIATRIC: Anxious. Appropriate judgment. Data Data Last Documented VS Vital Signs Date Time Temp Pulse Resp B/P (MAP) Pulse Ox O2 Delivery O2 Flow Rate FiO2 01/15/18 14:35 97.7 89 17 175/87 (116) 99 Room Air Orders Orders Electrocardiogram (01/15/18 12:35) Complete Blood Count With Diff (01/15/18 12:35) Ckmb (Isoenzyme) Profile (01/15/18 12:35) Troponin I (01/15/18 12:35) Iv Access Insert/Monitor (01/15/18 12:35) Ecg Monitoring (01/15/18 12:35) Oxygen Administration (01/15/18 12:35) Oximetry (01/15/18 12:35) Comprehensive Metabolic Panel (01/15/18 12:35) Prothrombin Time / Inr (Pt) (01/15/18 12:35) Chest, Pa & Lat (01/15/18 12:35) CKMB (01/15/18 12:54) CKMB% (01/15/18 12:54) Hydralazine Inj (Apresoline Inj) (01/15/18 14:30) Ketorolac Inj (Toradol Inj) (01/15/18 14:30) Cyclobenzaprine (Flexeril) (01/15/18 14:30) Labetalol Inj (Trandate Inj) (01/15/18 15:00) Amlodipine (Norvasc) (01/15/18 15:30) Admit Order (Ed Use Only) (01/15/18 15:36) Labs Laboratory Tests Test 01/15/18 12:54 White Blood Count 6.3 TH/MM3 Red Blood Count 4.77 MIL/MM3 Hemoglobin 14.8 GM/DL Hematocrit 41.9 % Mean Corpuscular Volume 87.9 FL Mean Corpuscular Hemoglobin 31.1 PG Mean Corpuscular Hemoglobin Concent 35.3 % Red Cell Distribution Width 13.3 % Platelet Count 211 TH/MM3 Mean Platelet Volume 9.4 FL Neutrophils (%) (Auto) 57.6 % Lymphocytes (%) (Auto) 30.4 % Monocytes (%) (Auto) 9.2 % Eosinophils (%) (Auto) 2.0 % Basophils (%) (Auto) 0.8 % Neutrophils # (Auto) 3.6 TH/MM3 Lymphocytes # (Auto) 1.9 TH/MM3 Monocytes # (Auto) 0.6 TH/MM3 Eosinophils # (Auto) 0.1 TH/MM3 Basophils # (Auto) 0.0 TH/MM3 CBC Comment DIFF FINAL Differential Comment Prothrombin Time 10.3 SEC Prothromb Time International Ratio 1.0 RATIO Blood Urea Nitrogen 11 MG/DL Creatinine 0.81 MG/DL Random Glucose 116 MG/DL Total Protein 7.9 GM/DL Albumin 3.9 GM/DL Calcium Level 9.0 MG/DL Alkaline Phosphatase 100 U/L Aspartate Amino Transf (AST/SGOT) 21 U/L Alanine Aminotransferase (ALT/SGPT) 27 U/L Total Bilirubin 0.2 MG/DL Sodium Level 137 MEQ/L Potassium Level 3.7 MEQ/L Chloride Level 104 MEQ/L Carbon Dioxide Level 23.2 MEQ/L Anion Gap 10 MEQ/L Estimat Glomerular Filtration Rate 76 ML/MIN Total Creatine Kinase 103 U/L Creatine Kinase MB 0.9 NG/ML Troponin I LESS THAN 0.02 NG/ML MDM Medical Decision Making Medical Screen Exam Complete: Yes Emergency Medical Condition: Yes Differential Diagnosis Radiculopathy versus hypertensive urgency versus ACS Narrative Course 47-year-old female with a history of hypertension, fibromyalgia, MS, lupus, hypertension, presents here today with complaints of neck pain jaw pain, arm pain and chest pain. Patient was also noted to have a blood pressure in the low 200s systolic and low 100s diastolic. She reports that she has not been taking her blood pressure medicines for over a year. 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 She has been given amlodipine 10 mg p.o. 1 dose. Initially we had ordered hydralazine however we are out of this medication in the hospital. She was offered labetalol which she refused stating it caused symptoms when she had it previously. She will be ruled out and get her blood pressure under control. Case discussed with Dr. Ramirez, [facility] hospitalist, who agrees with the plan. Diagnosis Primary Impression: Hypertensive urgency Additional Impressions: Chest pain History of chronic pain History of thyroiditis Reported history of lupus. Admitting Information Admitting Physician Requests: Observation Jeremiah Redman MD January 15, 2018 14:45
[2018-01-15] MEDS ORDERED: LABETALOL HCL 100 MG/20 ML VIAL IV PUSH ONE (15:00)
[2018-01-15 16:21] VITALS: BP 169/78; PULSE 80; RESP 16; O2SAT 99
--- NOTE | 2018-01-15 16:40 | HHI.HP ---
[facility] No Primary Care Physician Admission Diagnosis hypertensive urgency, chest pain, neck pain, Diagnoses: (1) Neck pain Diagnosis: Principal (2) Chest pain (3) Hypertensive urgency Chief Complaint: My neck pain was worse last night Travel History International Travel<30 Days: No Contact w/Intl Traveler <30 Da: No Traveled to Known Affected Are: No History of Present Illness Written by Ernesto Field, acting as scribe for Dr. Hernandez on 01/15/18 at 16:41. 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 Patient reports that she was being seen by Dr. Quach neurosurgeon and was advised that she needed cervical neck surgery due to disc problems. She decided not to go through with surgery and opted for conservative and natural measures. Patient reports that he has been well over a year since she was last seen by Dr. Quach. She reports that she was also being seen by neurology Dr. Barnard due to questionable onset of Parkinson's disease and frequent falling about 1 year ago. Patient has been unable to follow-up with neurologist or neurosurgeon due to loss of insurance. Patient states that she also experienced a fall about 3 years ago at her child's school and from then has experienced some degree of neck pain on and off. Last night however she reports that neck pain was severe and traveled to right side of the jaw, shoulder and chest. She reports that pain across her chest was also making breathing difficult. She also reports that last night she had a migraine for which she tried taking ibuprofen with little relief. She also became nauseous and took something for nausea. She does endorse photosensitivity with migraines. Pain around neck is worse with movement. She is also experienced right arm weakness and numbness/tingling. Regarding her hypertension patient states that she is very sensitive to medications and friend who is at bedside also acknowledges this. Patient has been placed on different medications which have resulted in numerous side effects including leg swelling, leg lumps and bumps. About 1 year ago before losing insurance patient was placed on clonidine patch which she reports did control somewhat her blood pressure however was unable to afford it after losing her health insurance. At home she reports checking her blood pressure occasionally and this will run 150-160s/100s-90s. Patient states that she has been trying to manage her medical conditions with a number of natural supplement. no reports of fevers, chills, diarrhea, abdominal pain, cough, dizziness, falls in the past year or swallowing difficulties. Patient with a long list of questionable diagnosis as well as medical conditions which were being worked up prior to her loss of insurance. Questionable historian. 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 Allergies: Coded Allergies: prochlorperazine (Unverified Adverse Reaction, Mild, anxiety, 01/15/18) *MDRO Multi-Drug Resistant Organism (Unverified Adverse Reaction, Unknown , 01/15/18) MRSA hydromorphone (Unverified Adverse Reaction, Unknown, "I just didn't feel right", 01/15/18) lorazepam (Unverified Adverse Reaction, Unknown, "I felt blank", 01/15/18) Family History Noncontributory Social History Denies any tobacco, alcohol, or illicit drug use. Physical Exam Vital Signs Vital Signs Date Time Temp Pulse Resp B/P (MAP) Pulse Ox O2 Delivery O2 Flow Rate FiO2 01/15/18 16:21 80 16 169/78 (108) 99 Room Air 01/15/18 14:35 97.7 89 17 175/87 (116) 99 Room Air 01/15/18 13:37 99 Room Air 01/15/18 13:37 83 16 205/102 (136) 99 Room Air 01/15/18 13:37 99 Room Air 01/15/18 12:36 97.6 95 20 211/140 (163) 99 Physical Exam GENERAL: This is a well-nourished, well-developed patient, in no apparent distress. SKIN: No rashes, ecchymoses or lesions. Cool and dry. HEAD: Atraumatic. Normocephalic. No temporal or scalp tenderness. EYES: Pupils equal round and reactive. Extraocular motions intact. No scleral icterus. No injection or drainage. ENT: Nose without bleeding, purulent drainage. Throat without erythema. Uvula midline. Airway patent. NECK: Trachea midline. No JVD or lymphadenopathy. Supple, nontender. CARDIOVASCULAR: Regular rate and rhythm without murmurs, gallops, or rubs. RESPIRATORY: Clear to auscultation. Breath sounds equal bilaterally. No wheezes , rales, or rhonchi. GASTROINTESTINAL: Abdomen soft, non-tender, nondistended. No hepato-splenomegaly , or palpable masses. No guarding. MUSCULOSKELETAL: Extremities without clubbing, cyanosis, or edema. No joint tenderness, effusion, or edema noted. No calf tenderness. Negative Homans sign bilaterally. NEUROLOGICAL: Awake and alert, oriented X3. Cranial nerves II through XII intact. 4/5 in RUE, 5/5 LUE and bilateral lower extremities. Normal speech. Laboratory Laboratory Tests Test 01/15/18 12:54 White Blood Count 6.3 Red Blood Count 4.77 Hemoglobin 14.8 Hematocrit 41.9 Mean Corpuscular Volume 87.9 Mean Corpuscular Hemoglobin 31.1 Mean Corpuscular Hemoglobin Concent 35.3 Red Cell Distribution Width 13.3 Platelet Count 211 Mean Platelet Volume 9.4 Neutrophils (%) (Auto) 57.6 Lymphocytes (%) (Auto) 30.4 Monocytes (%) (Auto) 9.2 Eosinophils (%) (Auto) 2.0 Basophils (%) (Auto) 0.8 Neutrophils # (Auto) 3.6 Lymphocytes # (Auto) 1.9 Monocytes # (Auto) 0.6 Eosinophils # (Auto) 0.1 Basophils # (Auto) 0.0 CBC Comment DIFF FINAL Differential Comment Prothrombin Time 10.3 Prothromb Time International Ratio 1.0 Blood Urea Nitrogen 11 Creatinine 0.81 Random Glucose 116 Total Protein 7.9 Albumin 3.9 Calcium Level 9.0 Alkaline Phosphatase 100 Aspartate Amino Transf (AST/SGOT) 21 Alanine Aminotransferase (ALT/SGPT) 27 Total Bilirubin 0.2 Sodium Level 137 Potassium Level 3.7 Chloride Level 104 Carbon Dioxide Level 23.2 Anion Gap 10 Estimat Glomerular Filtration Rate 76 Total Creatine Kinase 103 Creatine Kinase MB 0.9 Troponin I LESS THAN 0.02 Result Diagram: 01/15/18 1254 01/15/18 1254 Imaging Last Impressions Chest X-Ray 01/15/18 1235 Signed Impressions: CONCLUSION: No acute cardiopulmonary disease. Caprini VTE Risk Assessment Caprini VTE Risk Assessment: No/Low Risk (score <= 1) Caprini Risk Assessment Model Point Value = 1 Point Value = 2 Point Value = 3 Point Value = 5 Age 41-60 Minor surgery BMI > 25 kg/m2 Swollen legs Varicose veins or History of unexplained or recurrent spontaneous Oral contraceptives or hormone replacement Sepsis (< 1 month) Serious lung disease, including pneumonia (< 1 month) Abnormal pulmonary function Acute myocardial infarction Congestive heart failure (< 1 month) History of inflammatory bowel disease Medical patient at bed rest Age 61-74 Arthroscopic surgery Major open surgery (> 45 min) Laparoscopic surgery (> 45 min) Malignancy Confined to bed (> 72 hours) Immobilizing plaster cast Central venous access Age >= 75 History of VTE Family history of VTE Factor V Leiden Prothrombin [id number] Lupus anticoagulant Anticardiolipin antibodies Elevated serum homocysteine Heparin-induced thrombocytopenia Other congenital or acquired thrombophilia Stroke (< 1 month) Elective arthroplasty Hip, pelvis, or leg fracture Acute spinal cord injury (< 1 month) Prophylaxis Regimen Total Risk Factor Score Risk Level Prophylaxis Regimen 0-1 Low Early ambulation 2 Moderate Order ONE of the following: *Sequential Compression Device (SCD) *Heparin 5000 units SQ BID 3-4 Higher Order ONE of the following medications: *Heparin 5000 units SQ TID *Enoxaparin/Lovenox 40 mg SQ daily (WT < 150 kg, CrCl > 30 mL/min) *Enoxaparin/Lovenox 30 mg SQ daily (WT < 150 kg, CrCl > 10-29 mL/min) *Enoxaparin/Lovenox 30 mg SQ BID (WT < 150 kg, CrCl > 30 mL/min) AND/OR *Sequential Compression Device (SCD) 5 or more Highest Order ONE of the following medications: *Heparin 5000 units SQ TID (Preferred with Epidurals) *Enoxaparin/Lovenox 40 mg SQ daily (WT < 150 kg, CrCl > 30 mL/min) *Enoxaparin/Lovenox 30 mg SQ daily (WT < 150 kg, CrCl > 10-29 mL/min) *Enoxaparin/Lovenox 30 mg SQ BID (WT < 150 kg, CrCl > 30 mL/min) AND *Sequential Compression Device (SCD) Assessment and Plan Assessment and Plan 47-year-old female with past medical history significant for cervical neck problems, migraines, hypertension, fibromyalgia, lupus, rheumatoid arthritis, anxiety, depression, and 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 Hypertensive urgency -Patient reports not taking any antihypertensives for 1 year, last medication she was on was clonidine patch. -BP on presentation to the ER 211/140 with heart rate 95 -Patient refused ordered labetalol 10 mg as well as hydralazine 20 mg. She did agree to take Norvasc 10 mg p.o., last BP recorded around 4:20 PM 169/78, improved. -We will continue Norvasc 10 mg daily p.o., as needed Vasotec IV Possible cervical neck radiculopathy Migraine headaches/jaw pain -Patient with a history of cervical spine problems, was seen by Dr. Quach years ago who recommended surgery which patient at that time declined. Patient also with history of fall and injury 3 years ago. -Review of EMR, last cervical spine MRI was completed 03/24/15 which revealed degenerative disc disease at C5-C6 and C6-C7. C5-C6 right paracentral disc protrusion. C6-C7 generalized disc protrusion broad-base with asymmetry of the left neural foramina relative to the right. -Will obtain MRI of C-spine to evaluate progression of disc disease, depending on results consider neurosurgery consult for further recommendations. -Patient was administered Toradol 30 mg IV and Flexeril 10 mg p.o. while in the ED -Pain control with Flexeril 10 mg 3 times daily, as needed Motrin and Tylenol Atypical chest pain - ? If chest pain could possibly be related to neck pain, chest pain is worse with deep breathing. -Troponin checked in ER negative, pending EKG Nausea and vomiting -Likely related to migraine and possible radiculopathy pain, no complaints of nausea vomiting at the moment. 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 I attest that I had a face-to- face encounter with the patient and personally performed the history and physical exam and medical decision making. Ernesto Field January 15, 2018 16:40 Konstantin Hernandez MD January 15, 2018 18:10
[2018-01-15] MEDS ORDERED: ENALAPRILAT 1.25 MG/ML VIAL IV PUSH PRN (16:45)
--- NOTE | 2018-01-15 18:20 | RADRPT ---
EXAM DATE: 01/15/2018 6:00 PM EDT AGE/SEX: 47 years / Female INDICATIONS: Pain. Neck pain for two days with no injury. CLINICAL DATA: This is the patient's initial encounter. Patient reports that signs and symptoms have been present for 2 days and indicates a pain score of 10/10. MEDICAL/SURGICAL HISTORY: . Parkinson disease, fibromyalgia, multiple sclerosis and Will's . . Nose surgery, lumpectomy and abdominal tumor removal. COMPARISON: None. TECHNIQUE: Multiplanar, multisequence MRI examination of the cervical spine was performed without co ntrast. FINDINGS: Vertebrae: Normal vertebral body height. Homogeneous marrow signal. Alignment: Normal. Cord: Normal configuration and signal. Post Fossa: The cerebellar tonsils are normal in position. C2-C3: The thecal sac has a normal configuration. There is no evidence of disc herniation or spinal canal stenosis. The neural foramina are patent bilaterally. C3-C4: The thecal sac has a normal configuration. There is no evidence of disc herniation or spinal canal stenosis. The neural foramina are patent bilaterally. C4-C5: The thecal sac has a normal configuration. There is no evidence of disc herniation or spinal canal stenosis. The neural foramina are patent bilaterally. C5-C6: There is disc desiccation with mild disc space narrowing. A broad-based disc bulge eccentric to the right narrows the right lateral recess. No abutment of the cord. No significant central canal stenosis. Neural foramina are patent bilaterally.. C6-C7: There is disc desiccation with a mild broad-based disc bulge. No abutment of the cord. Neural foramina are patent bilaterally. Mild bilateral lateral recess encroachment. C7-T1: No epidural impressions seen. CONCLUSION: 1. C5-C6 and C6-C7 degenerative changes with narrowing of the right lateral recess and mild encroach ment upon the central canal but no abutment of the cord or signal change in the cord. Electronically signed by: Cb Galvin MD 01/15/2018 6:18 PM EDT
[2018-01-15] MEDS: CYCLOBENZAPRINE HCL 10 MG TAB PO SCH (18:47)
[2018-01-15 20:29] VITALS: BP 157/93; PULSE 103; RESP 16; TEMP 98; O2SAT 97
[2018-01-15] MEDS: IBUPROFEN 400 MG TAB PO PRN (21:02)
[2018-01-16] VITALS (8 sets, daily range): BP systolic 119–174; BP diastolic 74–105; PULSE 72–115; RESP 16–20; TEMP 97.6–99.3; O2SAT 94–99
[2018-01-16] MEDS: CYCLOBENZAPRINE HCL 10 MG TAB PO SCH ×3 (08:42→17:56)
[2018-01-16] MEDS: THYROID 60 MG TAB PO SCH (08:42)
[2018-01-16] MEDS: IBUPROFEN 400 MG TAB PO PRN (08:43)
[2018-01-16 08:50] LABS: TROPONIN I LESS THAN 0.02 NG/ML (0.02-0.05)
--- NOTE | 2018-01-16 09:47 | HHI.PR ---
Subjective Remarks Follow up hypertension, neck pain. Patient states that overall she feels better today. She is still having pain in the right side of her neck. Also with increased pain in the right jaw. Chest pain has essentially resolved. Objective Vitals Vital Signs Date Time Temp Pulse Resp B/P (MAP) Pulse Ox O2 Delivery O2 Flow Rate FiO2 01/16/18 08:35 98.7 92 18 140/88 (105) 98 01/16/18 04:05 97.6 72 17 129/77 (94) 99 01/16/18 00:09 98.2 81 16 119/74 (89) 98 01/15/18 22:39 18 01/15/18 20:29 98.0 103 16 157/93 (114) 97 01/15/18 17:51 01/15/18 16:21 80 16 169/78 (108) 99 Room Air 01/15/18 15:54 16 01/15/18 14:35 97.7 89 17 175/87 (116) 99 Room Air 01/15/18 13:37 99 Room Air 01/15/18 13:37 83 16 205/102 (136) 99 Room Air 01/15/18 13:37 99 Room Air 01/15/18 12:36 97.6 95 20 211/140 (163) 99 Result Diagram: 01/15/18 1254 01/15/18 1254 Imaging Last Impressions Chest X-Ray 01/15/18 1235 Signed Impressions: CONCLUSION: No acute cardiopulmonary disease. Cervical Spine MRI 01/15/18 0000 Signed Impressions: CONCLUSION: 1. C5-C6 and C6-C7 degenerative changes with narrowing of the right lateral re cess and mild encroachment upon the central canal but no abutment of the cord o r signal change in the cord. Objective Remarks General: No acute distress. Heart: Regular rate and rhythm. No murmur. Lungs: Clear to auscultation bilaterally. No wheezes, rales, or rhonchi. Breathing is nonlabored. Abdomen: Soft, nontender, nondistended. Extremities: No lower extremity edema. Psych: Alert and oriented. Neuro: Normal speech. No focal deficits noted. HEENT: Tenderness over the right TMJ. Neck: Tenderness over the right trapezius muscle. Procedures None Urinary Catheter: No Vascular Central Line Catheter: No A/P Problem List: (1) Neck pain ICD Code: M54.2 - Cervicalgia (2) Chest pain ICD Code: R07.9 - Chest pain, unspecified (3) Hypertensive urgency ICD Code: I16.0 - Hypertensive urgency Status: Acute Assessment and Plan 1. Hypertensive urgency: Resolved. Blood pressure is well controlled. Continue Norvasc. Vasotec as needed. 2. Possible cervical radiculopathy: MRI of the cervical spine shows degenerative disc disease at C5-C6 and C6-C7. Continue Flexeril, Motrin, Tylenol. 3. Right jaw pain: Possibly related to cervical spine degenerative disc disease versus TMJ dysfunction. Continue pain control, Flexeril. 4. Atypical chest pain: Improved. Troponin negative 2. Unlikely to be cardiac etiology. 5. Nausea/vomiting: Improved. 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 7. DVT prophylaxis: SCDs, ambulation. Discharge Planning Possible discharge later today or tomorrow pending further clinical improvement. Loi Friend MD Jan 16, 2018 09:47
--- NOTE | 2018-01-16 14:44 | EKG ---
Date Performed: 01/15/2018 Time Performed: 12:48:28 PTAGE: 47 years EKG: Sinus rhythm NONSPECIFIC T-WAVE ABNORMALITY BORDERLINE ECG INTERPRETATION BASED ON A DEFAULT AGE OF 40 YEARS Sinc e the PREVIOUS TRACING , no significant change noted PREVIOUS TRACIN06/24/2016 15.42.28 DOCTOR: Janusz Womack Interpretating Date/Time 01/16/2018 14:42:52
[2018-01-16] MEDS ORDERED: WALKER/YOUTH/FO1 MIS (15:28)
[2018-01-16] MEDS: KETOROLAC TROMETHAMINE 30 MG/ML (IVP) VIAL IV PUSH PRN ×2 (15:38→21:40)
[2018-01-16] MEDS: ACETAMINOPHEN 325 MG TAB PO PRN (21:40)
[2018-01-16] MEDS ORDERED: ACETAMINOPHEN/HYDROcodone 325 MG/5 MG TAB PO ONE (23:45)
[2018-01-17 03:32] VITALS: BP 146/83; PULSE 87; RESP 16; TEMP 98; O2SAT 98
[2018-01-17] MEDS: KETOROLAC TROMETHAMINE 30 MG/ML (IVP) VIAL IV PUSH PRN ×2 (03:50→13:12)
[2018-01-17 07:43] VITALS: BP 137/73; PULSE 86; RESP 18; TEMP 98.2; O2SAT 98
[2018-01-17] MEDS: THYROID 60 MG TAB PO SCH (09:38)
[2018-01-17] MEDS: ACETAMINOPHEN 325 MG TAB PO PRN ×2 (09:38→13:11)
[2018-01-17] MEDS: CYCLOBENZAPRINE HCL 10 MG TAB PO SCH ×2 (09:38→13:11)
[2018-01-17] MEDS ORDERED: ADJUST ALUMINUM1 MI1 (11:15)
[2018-01-17] MEDS ORDERED: KETO10 PO (11:15)
[2018-01-17] MEDS ORDERED: CYCL10TA PO (11:15)
[2018-01-17] MEDS ORDERED: ARMO120T PO (11:15)
[2018-01-17] MEDS ORDERED: AMLO10 PO (11:16)
--- NOTE | 2018-01-17 11:16 | HHI.DCPOC ---
Discharge Care Plan Diagnosis: (1) Hypertension (2) Hypothyroid (3) Chronic pain Goals to Promote Your Health * To prevent worsening of your condition and complications * To maintain your health at the optimal level Directions to Meet Your Goals Take your medications as prescribed Follow your dietary instruction Follow activity as directed Keep your appointments as scheduled Take your immunizations and boosters as scheduled If your symptoms worsen call your PCP, if no PCP go to Urgent Care Center or Emergency Room Smoking is Dangerous to Your Health. Avoid second hand smoke Call the 24-hour hour crisis hotline for domestic abuse at Shayy White PA-C Jan 17, 2018 11:16 am
--- NOTE | 2018-01-17 11:17 | HHI.PR ---
Subjective Remarks Follow up for jaw pain, neck pain. The patient reports feeling overall better today, still with some mild right neck and jaw pain. Denies fevers or chills. She has been ambulating the hallways with her walker without difficulty. Denies any chest pain or shortness of breath. She states she used to see Dr. Shultz but stopped going to him because she lost her insurance. Discussed with physical therapy at bedside who recommends outpatient physical therapy. Objective Vitals Vital Signs Date Time Temp Pulse Resp B/P (MAP) Pulse Ox O2 Delivery O2 Flow Rate FiO2 01/17/18 07:43 98.2 86 18 137/73 (94) 98 01/17/18 03:32 98.0 87 16 146/83 (104) 98 01/16/18 23:21 97.9 100 16 138/89 (105) 97 01/16/18 19:18 98.5 105 16 163/97 (119) 94 01/16/18 15:58 99.3 115 18 159/104 (122) 97 01/16/18 12:46 98.6 111 18 142/98 (113) 96 01/16/18 11:20 109 20 174/105 (128) 98 Result Diagram: 01/15/18 1254 01/15/18 1254 Imaging Last Impressions Chest X-Ray 01/15/18 1235 Signed Impressions: CONCLUSION: No acute cardiopulmonary disease. Cervical Spine MRI 01/15/18 0000 Signed Impressions: CONCLUSION: 1. C5-C6 and C6-C7 degenerative changes with narrowing of the right lateral re cess and mild encroachment upon the central canal but no abutment of the cord o r signal change in the cord. Objective Remarks GENERAL: Well-nourished, well-developed middle aged female patient in [facility]. SKIN: Warm and dry. No rash. HEENT: Normocephalic. Atraumatic. Pupils equal and round. Mucous membranes pink and moist. NECK: Supple. Trachea midline. Nontender to palpation. CARDIOVASCULAR: Regular rate and rhythm. No murmur appreciated. RESPIRATORY: No accessory muscle use. Clear to auscultation. Breath sounds equal bilaterally. GASTROINTESTINAL: Abdomen soft, non-tender, nondistended. Normoactive bowel sounds x4. MUSCULOSKELETAL: No obvious deformities. Extremities without clubbing, cyanosis , or edema. No cervical bony point tenderness. Full active ROM of neck. NEUROLOGICAL: Awake and alert. No obvious cranial nerve deficits. Motor grossly within normal limits. 5/5 strength of bilateral upper extremities. Normal speech. Procedures None Medications and IVs Current Medications Medications (Trade) Dose Ordered Sig/Markus Route Start Time Stop Time Status Last Admin (Vasotec Inj) 1.25 mg Q8H PRN IV PUSH 01/15/18 16:45 (Norvasc) 10 mg DAILY PO 01/16/18 09:00 01/17/18 09:38 (Tylenol) 650 mg Q4H PRN PO 01/15/18 16:45 01/17/18 09:38 (Flexeril) 10 mg TID PO 01/15/18 18:00 01/17/18 09:38 ([place] Thyroid) 120 mg DAILY PO 01/16/18 09:00 01/17/18 09:38 (Toradol Inj) 15 mg Q6H PRN IV PUSH 01/16/18 21:00 01/19/18 20:59 01/17/18 03:50 A/P Problem List: (1) Neck pain ICD Code: M54.2 - Cervicalgia (2) Chest pain ICD Code: R07.9 - Chest pain, unspecified (3) Hypertensive urgency ICD Code: I16.0 - Hypertensive urgency Status: Acute Assessment and Plan 47-year-old female with past medical history significant for cervical neck problems, migraines, hypertension, fibromyalgia, lupus, rheumatoid arthritis, anxiety, depression, and 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 Hypertensive urgency: Patient not on medications upon arrival. BP 211/140. -Started on Norvasc 10mg daily with good response -Vasotec as needed. -BP well controlled Mild cervical radiculopathy: MRI of the cervical spine shows degenerative disc disease at C5-C6 and C6-C7. -Continue Flexeril, Motrin, Tylenol. -Consult PT, recommend outpatient physical therapy and clover size walker or cane -Patient ambulating the unit without difficulty -Recommended outpatient f/up with Dr. Quach Right jaw pain: Possibly related to cervical spine degenerative disc disease versus TMJ dysfunction. -Continue pain control, Flexeril. -Improving, suspect TMJ -Outpatient f/up with PCP Atypical chest pain: Possibly secondary to cardiac demand from hypertensive urgency. -Troponin negative 2 and EKG without acute ischemic changes -Unlikely to be cardiac etiology. -Resolved. Nausea/vomiting: Resolved. 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 Patient requesting prescription at discharge. DVT prophylaxis: SCDs, ambulation. Discharge Planning Discharge patient to home Condition on discharge: Stable Regular Diet as tolerated Ad Mendy activity Rx written: Norvasc, Toradol, Flexeril, [place] Thyroid Follow-up with primary care physician, neurology, neurosurgeon, and physical therapy Shayy White PA-C Jan 17, 2018 11:17 am
[2018-01-17 11:42] VITALS: BP 173/97; PULSE 107; RESP 20; TEMP 97.9; O2SAT 96
[2018-01-17 12:35] VITALS: BP 160/84
[2018-01-17] MEDS ORDERED: ZOFR4TAB3 SL (13:07)
[2018-01-17] MEDS ORDERED: ONDANSETRON ODT 4 MG TAB PO PRN (13:15)
[2018-01-17] MEDS ORDERED: ONDANSETRON ODT 4 MG TAB PO ONE (14:00)
[2018-01-17 15:27] VITALS: BP 143/86; PULSE 110; RESP 18; TEMP 98.9; O2SAT 98
== END 2018-01-17 17:49 | disposition home or self-care (01) ==
LOC: NEPC 12:20 → NEDA 15:38 → NEPFCDU 18:42
PROVIDERS: ADMIT Family Medicine; ATTEND Family Medicine
DX: I16.0 Hypertensive urgency (principal); R07.89 Other chest pain; R11.2 Nausea with vomiting, unspecified; I10 Essential (primary) hypertension; G35 Multiple sclerosis; E78.00 Pure hypercholesterolemia, unspecified; M79.7 Fibromyalgia; R68.84 Jaw pain; G20 Parkinson's disease; J45.909 Unspecified asthma, uncomplicated; M06.9 Rheumatoid arthritis, unspecified; E06.3 Autoimmune thyroiditis; G43.909 Migraine, unspecified, not intractable, without status migrainosus; M50.122 Cervical disc disorder at C5-C6 level with radiculopathy; F41.9 Anxiety disorder, unspecified; F32.9 Major depressive disorder, single episode, unspecified; F43.10 Post-traumatic stress disorder, unspecified; Z86.73 Personal history of transient ischemic attack (TIA), and cerebral infarction without residual deficits; Z79.899 Other long term (current) drug therapy
CPT/HCPCS: 71046; 72141; 80053; 82550; 82552; 84484; 85025; 85610; 93005; 96374; 96376; 97110; 97163; 97530; 99285; G0378; G8987; G8988; J1885